=== PATIENT | female | born 1955 | race Caucasian/White ===

== ENCOUNTER → 2017-05-19 | Outpatient (REF) | payer BC, OTHER ==
[~2017-05-19] MED LIST: /WARF25TA OR; /WARF5TA OR; ACET65TA OR; IBUPROPHEN PO; OMEPPOW18 PO; PERC5TAB8 OR; PERC7.5T8 OR; PERCOCET PO; ZOLOFT PO
[2017-05-19 18:13] LABS: ALBUMIN 3.5 GM/DL (3.2-5.2); ALBUMIN/GLOBULIN RATIO 1.25 (1.00-1.93); ALKALINE PHOSPHATASE 90 U/L (45-117); ALT/SGPT 58 U/L (12-78); ANION GAP 8 MEQ/L (8-16); AST/SGOT 78 U/L (7-37); BILIRUBIN,TOTAL 0.7 MG/DL (0.2-1.0); BLOOD UREA NITROGEN 8 MG/DL (7-18); CALCIUM LEVEL 8.6 MG/DL (8.8-10.2); CARBON DIOXIDE LEVEL 26 MEQ/L (21-32); CHLORIDE LEVEL 105 MEQ/L (98-107); CREATININE FOR GFR 0.53 MG/DL (0.55-1.02); GLOMERULAR FILTRATION RATE > 60.0 (>45); GLUCOSE, FASTING 197 MG/DL (80-110); POTASSIUM SERUM 3.9 MEQ/L (3.5-5.1); SODIUM LEVEL 139 MEQ/L (136-145); TOTAL PROTEIN 6.3 GM/DL (6.4-8.2)
[2017-05-19 18:42] LABS: BASO # 0.1 10^3/uL (0.0-0.2); BASO % 0.7 % (0.0-1.0); EOS # 0.2 10^3/uL (0.0-0.50); EOS % 2.2 % (0.0-3.0); IMMATURE GRANULOCYTE % 1.1 % (0-0); LYMPH # 1.2 10^3/uL (1.5-4.5); MEAN CORPUSCULAR HEMOGLOBIN 30.8 pg (27.0-33.0); MEAN CORPUSCULAR HGB CONC 33.2 g/dl (32.0-36.5); MONO # 0.8 10^3/uL (0.0-0.8); MONO % 7.4 % (0.0-5.0); NEUTROPHILS # 7.8 10^3/uL (1.8-7.7); NEUTROPHILS % 76.6 % (36.0-66.0); PLATELET COUNT, AUTOMATED 195 10^3/uL (150-450); RED CELL DISTRIBUTION WIDTH 13.1 % (11.5-14.5); WHITE BLOOD COUNT 10.2 10^3/uL (4.0-10.0)
[2017-05-19 19:17] LABS: ERYTHROCYTE SEDIMENTATION RATE 46 mm/hr (0-30)
== END ==
LOC: M LAB REF 16:26
PROVIDERS: ATTEND Nurse Practitioner
DX: M25.551 Pain in right hip (principal); I10 Essential (primary) hypertension; E11.9 Type 2 diabetes mellitus without complications

== ENCOUNTER → 2017-06-02 | Outpatient (REF) | payer BC, OTHER ==
[2017-06-02 19:03] LABS: BASO # 0.1 10^3/uL (0.0-0.2); BASO % 0.9 % (0.0-1.0); EOS # 0.3 10^3/uL (0.0-0.50); EOS % 3.2 % (0.0-3.0); IMMATURE GRANULOCYTE % 0.5 % (0-0); LYMPH # 1.2 10^3/uL (1.5-4.5); LYMPH % 13.3 % (24.0-44.0); MEAN CORPUSCULAR HEMOGLOBIN 30.5 pg (27.0-33.0); MEAN CORPUSCULAR VOLUME 92.5 fl (80.0-96.0); MONO # 0.7 10^3/uL (0.0-0.8); MONO % 8.3 % (0.0-5.0); NEUTROPHILS # 6.5 10^3/uL (1.8-7.7); NEUTROPHILS % 73.8 % (36.0-66.0); PLATELET COUNT, AUTOMATED 201 10^3/uL (150-450); RED CELL DISTRIBUTION WIDTH 12.7 % (11.5-14.5); WHITE BLOOD COUNT 8.8 10^3/uL (4.0-10.0)
[2017-06-02 19:10] LABS: ALBUMIN 3.6 GM/DL (3.2-5.2); ALBUMIN/GLOBULIN RATIO 1.38 (1.00-1.93); ALKALINE PHOSPHATASE 102 U/L (45-117); ALT/SGPT 44 U/L (12-78); ANION GAP 7 MEQ/L (8-16); AST/SGOT 52 U/L (7-37); BILIRUBIN,TOTAL 0.6 MG/DL (0.2-1.0); BLOOD UREA NITROGEN 7 MG/DL (7-18); CALCIUM LEVEL 8.4 MG/DL (8.8-10.2); CARBON DIOXIDE LEVEL 27 MEQ/L (21-32); CHLORIDE LEVEL 108 MEQ/L (98-107); CREATININE FOR GFR 0.63 MG/DL (0.55-1.02); GLOMERULAR FILTRATION RATE > 60.0 (>45); GLUCOSE, FASTING 148 MG/DL (80-110); POTASSIUM SERUM 3.7 MEQ/L (3.5-5.1); SODIUM LEVEL 142 MEQ/L (136-145); TOTAL PROTEIN 6.2 GM/DL (6.4-8.2)
[2017-06-02 20:49] LABS: ERYTHROCYTE SEDIMENTATION RATE 28 mm/hr (0-30)
== END ==
LOC: M LAB REF 16:36
PROVIDERS: ATTEND Nurse Practitioner
DX: Z79.899 Other long term (current) drug therapy (principal)

== ENCOUNTER → 2017-06-09 | Outpatient (REF) | payer BC ==
[2017-06-09 16:41] LABS: BASO # 0.1 10^3/uL (0.0-0.2); BASO % 1.1 % (0.0-1.0); EOS # 0.2 10^3/uL (0.0-0.50); EOS % 2.2 % (0.0-3.0); LYMPH # 1.1 10^3/uL (1.5-4.5); LYMPH % 11.8 % (24.0-44.0); MEAN CORPUSCULAR HEMOGLOBIN 29.9 pg (27.0-33.0); MEAN CORPUSCULAR HGB CONC 33.2 g/dl (32.0-36.5); MEAN CORPUSCULAR VOLUME 90.2 fl (80.0-96.0); MONO # 0.6 10^3/uL (0.0-0.8); MONO % 6.7 % (0.0-5.0); NEUTROPHILS % 77.2 % (36.0-66.0); PLATELET COUNT, AUTOMATED 203 10^3/uL (150-450); RED CELL DISTRIBUTION WIDTH 12.6 % (11.5-14.5)
[2017-06-09 16:57] LABS: ALBUMIN 3.7 GM/DL (3.2-5.2); ALBUMIN/GLOBULIN RATIO 1.32 (1.00-1.93); ALKALINE PHOSPHATASE 90 U/L (45-117); ALT/SGPT 40 U/L (12-78); ANION GAP 9 MEQ/L (8-16); AST/SGOT 54 U/L (7-37); BILIRUBIN,TOTAL 0.6 MG/DL (0.2-1.0); BLOOD UREA NITROGEN 12 MG/DL (7-18); CARBON DIOXIDE LEVEL 25 MEQ/L (21-32); CHLORIDE LEVEL 106 MEQ/L (98-107); CREATININE FOR GFR 0.63 MG/DL (0.55-1.02); GLOMERULAR FILTRATION RATE > 60.0 (>45); GLUCOSE, FASTING 169 MG/DL (80-110); POTASSIUM SERUM 3.5 MEQ/L (3.5-5.1); SODIUM LEVEL 140 MEQ/L (136-145); TOTAL PROTEIN 6.5 GM/DL (6.4-8.2)
[2017-06-09 17:46] LABS: ERYTHROCYTE SEDIMENTATION RATE 20 mm/hr (0-30)
== END ==
LOC: M LAB REF 16:16
PROVIDERS: ATTEND Physician Assistant
DX: Z79.899 Other long term (current) drug therapy (principal)

== ENCOUNTER → 2017-06-16 | Outpatient (REF) | payer BC ==
[2017-06-17 10:05] LABS: EOS % 1.8 % (0.0-3.0); IMMATURE GRANULOCYTE % 0.7 % (0-0); LYMPH % 12.7 % (24.0-44.0); MEAN CORPUSCULAR HEMOGLOBIN 30.5 pg (27.0-33.0); MEAN CORPUSCULAR HGB CONC 32.5 g/dl (32.0-36.5); MEAN CORPUSCULAR VOLUME 93.9 fl (80.0-96.0); MONO % 6.1 % (0.0-5.0); NEUTROPHILS % 77.7 % (36.0-66.0); PLATELET COUNT, AUTOMATED 207 10^3/uL (150-450); RED CELL DISTRIBUTION WIDTH 12.7 % (11.5-14.5); WHITE BLOOD COUNT 9.2 10^3/uL (4.0-10.0)
[2017-06-17 10:06] LABS: ANION GAP 9 MEQ/L (8-16); BASO # 0.1 10^3/uL (0.0-0.2); BLOOD UREA NITROGEN 12 MG/DL (7-18); CALCIUM LEVEL 8.6 MG/DL (8.8-10.2); CARBON DIOXIDE LEVEL 25 MEQ/L (21-32); CHLORIDE LEVEL 104 MEQ/L (98-107); CREATININE FOR GFR 0.81 MG/DL (0.55-1.02); DIFF SLIDE NUMBER 394; EOS # 0.2 10^3/uL (0.0-0.50); ERYTHROCYTE SEDIMENTATION RATE 8 mm/hr (0-30); GLOMERULAR FILTRATION RATE > 60.0 (>45); GLUCOSE, FASTING 203 MG/DL (80-110); LYMPH # 1.2 10^3/uL (1.5-4.5); MONO # 0.6 10^3/uL (0.0-0.8); NEUTROPHILS # 7.2 10^3/uL (1.8-7.7); SODIUM LEVEL 138 MEQ/L (136-145)
[2017-06-17 10:07] LABS: ALBUMIN 3.7 GM/DL (3.2-5.2); ALBUMIN/GLOBULIN RATIO 1.28 (1.00-1.93); ALKALINE PHOSPHATASE 89 U/L (45-117); ALT/SGPT 47 U/L (12-78); AST/SGOT 54 U/L (7-37); BILIRUBIN,TOTAL 0.5 MG/DL (0.2-1.0); TOTAL PROTEIN 6.6 GM/DL (6.4-8.2)
== END ==
LOC: M LAB REF 09:16
PROVIDERS: ATTEND Nurse Practitioner
DX: Z79.2 Long term (current) use of antibiotics (principal)

== ENCOUNTER → 2018-04-17 | Outpatient (CLI) | payer MEDICARE | LOC: M CLY 10:54 | DX: M17.11 Unilateral primary osteoarthritis, right knee (principal); M25.761 Osteophyte, right knee; M25.561 Pain in right knee | CPT/HCPCS: 73564; 84550 ==

== ENCOUNTER → 2018-04-17 | Outpatient (REF) | payer MEDICARE ==
[2018-04-17 17:43] LABS: BASO # 0.1 10^3/uL (0.0-0.2); EOS # 0.2 10^3/uL (0.0-0.50); EOS % 2.4 % (0.0-3.0); HEMATOCRIT 40.9 % (36.0-47.0); HEMOGLOBIN 13.6 g/dl (12.0-15.5); IMMATURE GRANULOCYTE % 0.6 % (0-3.0); LYMPH # 1.3 10^3/uL (1.5-4.5); LYMPH % 15.7 % (24.0-44.0); MEAN CORPUSCULAR HEMOGLOBIN 30.2 pg (27.0-33.0); MEAN CORPUSCULAR HGB CONC 33.3 g/dl (32.0-36.5); MEAN CORPUSCULAR VOLUME 90.9 fl (80.0-96.0); MONO # 0.5 10^3/uL (0.0-0.8); MONO % 5.7 % (0.0-5.0); NEUTROPHILS % 74.6 % (36.0-66.0); PLATELET COUNT, AUTOMATED 194 10^3/uL (150-450); RED CELL DISTRIBUTION WIDTH 12.8 % (11.5-14.5)
[2018-04-17 18:16] LABS: ANION GAP 12 MEQ/L (8-16); BLOOD UREA NITROGEN 10 MG/DL (7-18); CALCIUM LEVEL 9.1 MG/DL (8.8-10.2); CARBON DIOXIDE LEVEL 22 MEQ/L (21-32); CHLORIDE LEVEL 106 MEQ/L (98-107); CREATININE FOR GFR 0.65 MG/DL (0.55-1.30); GLOMERULAR FILTRATION RATE > 60.0 (>45); GLUCOSE, FASTING 208 MG/DL (70-100); POTASSIUM SERUM 4.2 MEQ/L (3.5-5.1); SODIUM LEVEL 140 MEQ/L (136-145); URIC ACID 4.6 MG/DL (2.6-6.0)
[2018-04-17 19:26] LABS: ERYTHROCYTE SEDIMENTATION RATE 23 mm/hr (0-30)
== END ==
LOC: M SFHCCLAY 10:29
DX: M25.561 Pain in right knee (principal)
CPT/HCPCS: 84550

== ENCOUNTER → 2018-06-03 | Outpatient (REF) | payer MEDICARE ==
[2018-06-03 16:51] LABS: CHOLESTEROL LEVEL 201 MG/DL (<200); CHOLESTEROL RISK RATIO 4.902 (<5); HDL CHOLESTEROL 41 MG/DL (>40); LDL CHOLESTEROL 126 MG/DL (<100); NON-HDL-C 160 MG/DL; TRIGLYCERIDES LEVEL 168 MG/DL (<150)
[2018-06-03 16:59] LABS: ESTIMATED AVERAGE GLUCOSE 166 MG/DL (60-110); HEMOGLOBIN A1c 7.4 %
[2018-06-03 17:19] LABS: APPEARANCE, URINE CLEAR (CLEAR); BACTERIA, URINE AUTO 1+ (NEGATIVE); BILIRUBIN, URINE AUTO NEGATIVE (NEGATIVE); BLOOD, URINE BLOOD NEGATIVE (NEGATIVE); COLOR, URINE YELLOW (YELLOW); GLUCOSE, URINE (UA) AUTO NEGATIVE (NEGATIVE); KETONE, URINE AUTO NEGATIVE (NEGATIVE); LEUKOCYTE ESTERASE, URINE AUTO TRACE (NEGATIVE); MUCUS, URINE SMALL (NEGATIVE); NITRITE, URINE AUTO NEGATIVE (NEGATIVE); PROTEIN, URINE AUTO NEGATIVE (NEGATIVE); RBC, URINE AUTO 0 /HPF (0-3); SPECIFIC GRAVITY URINE AUTO 1.014 (1.002-1.035); SQUAMOUS EPITHELIAL CELL UR AU 0 /HPF (0-6); UROBILINOGEN, URINE AUTO 0.2 mg/dL (0.0-2.0); WBC, URINE AUTO 2 /HPF (0-3)
== END ==
LOC: M SFHCCLAY 10:43
DX: E11.9 Type 2 diabetes mellitus without complications (principal); E78.49 Other hyperlipidemia; R82.90 Unspecified abnormal findings in urine; E55.9 Vitamin D deficiency, unspecified
CPT/HCPCS: 83036

== ENCOUNTER → 2018-10-19 | Outpatient (REF) | payer MEDICARE ==
[2018-10-19 17:18] LABS: ALBUMIN 4.3 GM/DL (3.2-5.2); ALT/SGPT 44 U/L (12-78); BILIRUBIN,TOTAL 0.5 MG/DL (0.2-1.0); BLOOD UREA NITROGEN 17 MG/DL (7-18); CALCIUM LEVEL 9.1 MG/DL (8.8-10.2); CARBON DIOXIDE LEVEL 26 MEQ/L (21-32); CHLORIDE LEVEL 105 MEQ/L (98-107); CHOLESTEROL LEVEL 242 MG/DL (<200); CHOLESTEROL RISK RATIO 5.761 (<5); GLOMERULAR FILTRATION RATE > 60.0 (>45); GLUCOSE, FASTING 155 MG/DL (70-100); HDL CHOLESTEROL 42 MG/DL (>40); LDL CHOLESTEROL 174 MG/DL (<100); NON-HDL-C 200 MG/DL; POTASSIUM SERUM 4.2 MEQ/L (3.5-5.1); SODIUM LEVEL 139 MEQ/L (136-145); TOTAL PROTEIN 7.4 GM/DL (6.4-8.2); TRIGLYCERIDES LEVEL 129 MG/DL (<150)
[2018-10-19 17:25] LABS: TOTAL 25(OH) VITAMIN D 21.7 NG/ML (30.0-100.0)
[2018-10-19 17:27] LABS: HEMATOCRIT 43.2 % (36.0-47.0); HEMOGLOBIN 13.9 g/dl (12.0-15.5); MEAN CORPUSCULAR HEMOGLOBIN 29.3 pg (27.0-33.0); MEAN CORPUSCULAR HGB CONC 32.2 g/dl (32.0-36.5); MEAN CORPUSCULAR VOLUME 91.1 fl (80.0-96.0); PLATELET COUNT, AUTOMATED 220 10^3/uL (150-450); RED BLOOD COUNT 4.74 10^6/uL (4.00-5.40)
[2018-10-19 17:37] LABS: MALB URINE SIEMENS 24.1 MG/L; MAU/CREAT RATIO 27.7 MCG/MG (0.0-30.0)
[2018-10-19 17:45] LABS: HEMOGLOBIN A1c 7.9 %
== END ==
LOC: M SFHCCLAY 10:02
PROVIDERS: ATTEND Nurse Practitioner Family
DX: K21.9 Gastro-esophageal reflux disease without esophagitis (principal); I10 Essential (primary) hypertension; E11.9 Type 2 diabetes mellitus without complications; E78.49 Other hyperlipidemia; E55.9 Vitamin D deficiency, unspecified

== ENCOUNTER → 2019-01-26 | Outpatient (REF) | payer MEDICARE ==
[~2019-01-26] MED LIST changes: -/WARF25TA OR; -/WARF5TA OR; +COUM1TAB17 OR; +COUM1TAB18 OR
[2019-01-26 12:25] LABS: HEMOGLOBIN A1c 7.1 %
[2019-01-26 12:28] LABS: CHOLESTEROL RISK RATIO 7.105 (<5); TOTAL 25(OH) VITAMIN D 26.1 NG/ML (30.0-100.0)
== END ==
LOC: M SFHCCLAY 07:11
PROVIDERS: ATTEND Nurse Practitioner Family
DX: E11.9 Type 2 diabetes mellitus without complications (principal); E78.49 Other hyperlipidemia; E55.9 Vitamin D deficiency, unspecified

== ENCOUNTER → 2019-06-09 | Outpatient (REF) | payer MEDICARE ==
[2019-06-09 16:31] LABS: ALBUMIN 4.2 GM/DL (3.2-5.2); BILIRUBIN,DIRECT 0.1 MG/DL (0.0-0.2); BILIRUBIN,TOTAL 0.4 MG/DL (0.2-1.0); CHOLESTEROL RISK RATIO 6.48 (<5); TOTAL PROTEIN 7.4 GM/DL (6.4-8.2)
[2019-06-09 16:57] LABS: CREATININE, URINE 74.2 MG/DL; MALB URINE SIEMENS 6.9 MG/L; MAU/CREAT RATIO 9.2 MCG/MG (0.0-30.0)
== END ==
LOC: M SFHCCLAY 10:31
PROVIDERS: ATTEND Nurse Practitioner Family
DX: E11.9 Type 2 diabetes mellitus without complications (principal); E78.49 Other hyperlipidemia; E55.9 Vitamin D deficiency, unspecified; Z79.01 Long term (current) use of anticoagulants; Z79.899 Other long term (current) drug therapy

== ENCOUNTER → 2019-06-22 | Outpatient (CLI) | payer MEDICARE ==
--- NOTE | 2019-06-22 10:43 | REP ---
Clinical: Preoperative assessment . Comparison: 01/03/2012 . Technique: PA and lateral. Findings: The mediastinum and cardiac silhouette are normal. The lung albrecht are clear and without acute consolidation, effusion, or pneumothorax. The skeletal structures are intact and normal. Left shoulder replacement. Impression: 1. No acute cardiopulmonary process. Electronically Signed by Luis Rea MD 06/22/2019 10:34 A
[2019-06-22 11:26] LABS: HEMATOCRIT 46.6 % (36.0-47.0); HEMOGLOBIN 14.8 g/dl (12.0-15.5); MEAN CORPUSCULAR HEMOGLOBIN 28.6 pg (27.0-33.0); MEAN CORPUSCULAR HGB CONC 31.8 g/dl (32.0-36.5); MEAN CORPUSCULAR VOLUME 90.1 fl (80.0-96.0); PLATELET COUNT, AUTOMATED 215 10^3/uL (150-450); RED BLOOD COUNT 5.17 10^6/uL (4.00-5.40); WHITE BLOOD COUNT 8.4 10^3/uL (4.0-10.0)
[2019-06-22 11:44] LABS: INR 1.05; PROTHROMBIN TIME 13.4 SECONDS (11.8-14.0)
[2019-06-22 11:50] LABS: ERYTHROCYTE SEDIMENTATION RATE 9 mm/hr (0-30)
[2019-06-22 12:05] LABS: ALBUMIN 4.3 GM/DL (3.2-5.2); ALT/SGPT 26 U/L (12-78); BILIRUBIN,TOTAL 0.6 MG/DL (0.2-1.0); BLOOD UREA NITROGEN 16 MG/DL (7-18); CALCIUM LEVEL 9.6 MG/DL (8.8-10.2); CARBON DIOXIDE LEVEL 25 MEQ/L (21-32); CHLORIDE LEVEL 105 MEQ/L (98-107); CREATININE FOR GFR 0.68 MG/DL (0.55-1.30); GLOMERULAR FILTRATION RATE > 60.0 (>45); GLUCOSE, FASTING 120 MG/DL (70-100); POTASSIUM SERUM 3.8 MEQ/L (3.5-5.1); SODIUM LEVEL 139 MEQ/L (136-145); TOTAL PROTEIN 7.8 GM/DL (6.4-8.2)
--- NOTE | 2019-06-23 07:57 | ECGEPIP ---
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
== END ==
LOC: M LAB 09:50
PROVIDERS: ATTEND Orthopaedic Surgery Hand Surgery
DX: Z01.810 Encounter for preprocedural cardiovascular examination (principal); M16.11 Unilateral primary osteoarthritis, right hip; Z79.01 Long term (current) use of anticoagulants

== ENCOUNTER 2019-07-09 08:41 | Inpatient (IN) | payer MEDICARE ==
--- NOTE | 2019-07-06 18:58 | HPE ---
DATE OF ADMISSION: 07/09/2019 CHIEF COMPLAINT: Right hip pain. HISTORY OF PRESENT ILLNESS: Jessi is a pleasant 53-year-old female with progressively worsening right hip pain and stiffness. She has failed to improve with conservative treatment. She has elected for surgery for her continued symptoms. She has pain with weightbearing activities and her activities of daily living. X-rays of her hip are notable for advanced osteoarthritis of the right hip joint. She has consented for a right total hip arthroplasty by Dr. Norman Roe. Medical optimization was performed by Dr. Raya's office. ALLERGIES: AMOXICILLIN and AUGMENTIN. CURRENT MEDICATIONS: Omeprazole 40 mg at night, Vicodin 7.5/325 as needed, Zoloft to 200 mg and Crestor 400 mg. PAST MEDICAL HISTORY: Includes prediabetes and depression. PAST SURGICAL HISTORY: Includes hysterectomy, appendectomy, left total hip revision, left shoulder and left knee arthroscopies. 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 FAMILY HISTORY: Noncontributory. REVIEW OF SYSTEMS: This patient denies chest pain, heart palpitations, cough, wheezing, difficulty breathing and shortness of breath. She denies abdominal pain, nausea, vomiting, diarrhea or constipation. She denies recent upper respiratory infection or urinary tract infection symptoms. She does complain of persistent pain in the right hip. PHYSICAL EXAMINATION: General: She is well-nourished, well-developed in no acute distress, alert female. She ambulates with a mild limp favoring the right lower extremity. She is not using assistive devices. Vital signs: She is 5', 7", weighs 183.8 pounds, temperature 97.3, blood pressure 124/80, pulse of 66, respirations of 18. Neck was supple without adenopathy or jugular venous distension. Lungs were clear to auscultation without rales or wheeze. Heart: Regular rate and rhythm. Abdomen: Bowel sounds were present. Extremities: Examination of the hip revealed intact skin. She had decreased internal, external rotation on exam due to pain and stiffness. The limb is neurovascularly intact. LABORATORY DATA: Chest x-ray showed no acute cardiopulmonary disease, processes. EKG showed sinus rhythm at 87 beats per minute. Complete blood count (CBC) showed MCHC of 31.8, otherwise within normal limits. Sedimentation rate was 9, glucose 120, BUN 16, creatinine 0.68, sodium 139, potassium 3.8. Prothrombin time 13.4, INR 1.05. IMPRESSION: Symptomatic osteoarthritis of the right hip. PLAN: Consented for a right total hip arthroplasty by Dr. Norman Roe. edited: 07/12/2019 1134 tkf MTDD
[~2019-07-09] VITALS: Ht 167.6 cm; Wt 81.2 kg
[2019-07-09] VITALS (8 sets, daily range): BP systolic 100–116; BP diastolic 54–72
[~2019-07-09 08:41] MED LIST changes: +CRES40TA PO; +LR 1,000 ML IV ONE; +OMEP-172 PO; +VICO7.5T12 PO; +ZOLO100T PO
[2019-07-09] MEDS ORDERED: BUPIVACAINE LIPOSOME/PF 1.3% 20ML VIAL (13.3MG/ML)(EXPAREL)(C9290 PER1MG) As Ordered ONE (09:11)
[2019-07-09] MEDS ORDERED: VIAL MATE ADAPTER XX ONE ×3 (09:20→09:41)
[2019-07-09] MEDS ORDERED: PROPOFOL 500 MG/50 ML VIAL As Ordered ONE ×2 (09:50→11:04)
[2019-07-09] MEDS ORDERED: fentaNYL 100 MCG/2 ML INJECTION (J3010) As Ordered ONE (09:50)
[2019-07-09] MEDS ORDERED: ONDANSETRON 4MG/2ML VIAL (J2405) As Ordered ONE (09:50)
[2019-07-09] MEDS ORDERED: LIDOCAINE 2% INJ 100 MG/5 ML SDV (FOR ANES.) As Ordered ONE (09:50)
[2019-07-09] MEDS ORDERED: MIDAZOLAM INJ 2 MG/2 ML VIAL (J2250) As Ordered ONE (09:50)
[2019-07-09] MEDS ORDERED: dexameTHASONE 4 MG/ML 1ML VIAL (J1100) As Ordered ONE (09:50)
[2019-07-09] MEDS ORDERED: TRANEXAMIC ACID 100 MG/ML 10ML VIAL As Ordered ONE (09:55)
[2019-07-09] MEDS ORDERED: VANCOMYCIN HCL 1,000 MG, VIAL MATE ADAPTER 1 EACH in D5W 250 ML IV ONE (10:00)
[2019-07-09] MEDS ORDERED: PHENYLephrine HCL 500 MCG/5 ML (100MCG/ML) SYRINGE (J2370) As Ordered ONE (10:58)
[2019-07-09] MEDS ORDERED: ACETAMINOPHEN 1000MG 100ML IV BTL (OFIRMEV) (J0131 PER 10MG) As Ordered ONE (12:04)
[2019-07-09] MEDS ORDERED: ONDANSETRON 4MG/2ML VIAL (J2405) IV PRN (13:00)
[2019-07-09] MEDS ORDERED: LR 1,000 ML IV SCH (13:00)
[2019-07-09] MEDS ORDERED: fentaNYL 100 MCG/2 ML INJECTION (J3010) IV PRN (13:00)
[2019-07-09] MEDS ORDERED: METOCLOPRAMIDE INJ 10MG/2ML VIAL (J2765) IV PRN (13:00)
[2019-07-09] MEDS ORDERED: PERCOCET 5MG/325MG TAB PO PRN (13:00)
--- NOTE | 2019-07-09 13:09 | REP ---
Right hip: Two views. History: Postop. Findings: The patient is status post right hip arthroplasty. Arthroplasty components appear well aligned. Lateral skin mamie and soft tissue emphysema is visible. Impression: Status post right hip arthroplasty. Electronically Signed by Howie Donovan MD 07/09/2019 01:00 P
--- NOTE | 2019-07-09 13:10 | REP ---
Pelvis: Single view portably obtained. History: Postop placement. Findings: AP view of the pelvis demonstrates a bilateral hip arthroplasties in place. Degenerative disc and facet changes are noted in the lumbar spine. The bony pelvic ring is intact. Impression: Status post bilateral hip arthroplasty. Electronically Signed by Howie Donovan MD 07/09/2019 01:01 P
[2019-07-09] MEDS ORDERED: FLEET ENEMA PR PRN (13:15)
[2019-07-09] MEDS ORDERED: NS 1,000 ML IV SCH (13:15)
[2019-07-09] MEDS ORDERED: ONDANSETRON 4MG/2ML VIAL (J2405) IM PRN (13:15)
[2019-07-09] MEDS ORDERED: MORPHINE 2 MG/ML 1ML VIAL (J2270) IV PRN (13:15)
[2019-07-09] MEDS ORDERED: oxyCODONE 5MG TAB As Ordered ONE (13:22)
[2019-07-09] MEDS: oxyCODONE 5MG TAB PO PRN ×3 (13:25→20:29)
[2019-07-09] MEDS: CLINDAMYCIN 900 MG in IV 1 EA IV SCH (17:35)
--- NOTE | 2019-07-09 20:10 | CR.PDOC ---
General Date of Consultation: Jul 09, 2019 Consultation REASON FOR CONSULTATION/CHIEF COMPLAINT: Status post right total hip arthroplasty. HISTORY OF PRESENT ILLNESS: 64-year-old female with past medical history of diabetes, GERD, hyperlipidemia, was admitted status post right total hip arthroplasty. Procedure was done under spinal anesthesia, without complications, patient seen in her room, reports right hip pain and no other complaints. She is already gotten out of bed with assistance, passing flatus, has urinated after surgery. She denies any shortness of breath, chest pain, nausea, vomiting or diarrhea. 10 point review of system is negative except for above ALLERGIES: Please see below. HOME MEDICATIONS: Please see below. PAST MEDICAL HISTORY: 1. GERD. 2. Hyperlipidemia. 3. Diabetes mellitus. 4. Anxiety/depression PAST SURGICAL HISTORY: 1. Left total hip arthroplasty 2. Right total hip arthroplasty 3. Hysterectomy. 4. Multiple left shoulder surgeries FAMILY HISTORY: Mother with brain cancer SOCIAL HISTORY: Previous intermittent social smoker, quit 6 years ago. Denies alcohol use. Denies drug use PHYSICAL EXAMINATION: VITAL SIGNS: Please see below. GENERAL: No distress HEENT: Normocephalic, atraumatic, moist mucous membranes NECK: Supple CARDIOVASCULAR EXAMINATION: S1, S2, no murmurs RESPIRATORY EXAMINATION: Clear to auscultation, no wheezing ABDOMINAL EXAMINATION: Soft, nontender, nondistended, positive bowel sounds EXTREMITIES: Right lower extremity range of motion limited due to pain SKIN: No rash NEUROLOGICAL EXAMINATION: Alert and oriented 3, no focal deficits PSYCHIATRIC EXAMINATION: Calm and cooperative LABORATORY DATA: Please see below. ASSESSMENT/PLAN: 64-year-old female with past medical history of GERD, diabetes and hyperlipidemia is admitted status post right total hip arthroplasty. 1. Right total hip arthroplasty. Postop management as per primary team, on Xarelto for VTE prophylaxis. 2. Hyperlipidemia. Continue Crestor 3. GERD. Continue PPI 4. Diabetes mellitus. Not on medication, controlled with diet, will monitor. 5. Anxiety/depression. Continue sertraline DVT prophylaxis: Xarelto GI prophylaxis: PPI Vital Signs/I&O Vital Signs Date Time Temp Pulse Resp B/P (MAP) Pulse Ox O2 Delivery O2 Flow Rate FiO2 07/09/19 18:40 97.6 87 14 113/63 (80) 98 Nasal Cannula 2.0 Allergies Coded Allergies: latex (Verified Allergy, Intermediate, rash, 07/09/19) Penicillins (Verified Adverse Reaction, Mild, GI UPSET, 07/08/19) clavulanic acid (Verified Adverse Reaction, Mild, GI UPSET, 07/08/19) Home Medications Scheduled Omeprazole (Omeprazole) 20 Mg Capsule.dr, 20 MG PO BID, (Reported) Rosuvastatin Calcium (Crestor) 40 Mg Tablet, 40 MG PO DAILY for 30 Days, #30 (Reported) Sertraline Hcl (Zoloft) 100 Mg Tablet, 200 MG PO DAILY for 30 Days, #30 (Reported) Scheduled PRN Hydrocodone/Acetaminophen (Vicodin Es 7.5-300 mg Tablet) 1 Each Tablet, 1 TAB PO QIDP PRN for PAIN for 30 Days, #120 (Reported) MARQUEZ BAER MD Jul 09, 2019 20:10
[2019-07-09] MEDS: ROSUVASTATIN 10 MG TAB (CRESTOR) PO SCH (20:26)
[2019-07-09] MEDS: OMEPRAZOLE 20 MG CAP PO SCH (20:27)
[2019-07-09] MEDS: SERTRALINE 100 MG TAB PO SCH (20:27)
[2019-07-10] MEDS: oxyCODONE 5MG TAB PO PRN ×6 (00:01→20:15)
[2019-07-10 02:00] VITALS: BP 112/64
[2019-07-10] MEDS: CLINDAMYCIN 900 MG in IV 1 EA IV SCH ×2 (02:23→11:34)
[2019-07-10 05:57] LABS: HEMATOCRIT 29.5 % (36.0-47.0); HEMOGLOBIN 9.2 g/dl (12.0-15.5); MEAN CORPUSCULAR HEMOGLOBIN 28.3 pg (27.0-33.0); MEAN CORPUSCULAR HGB CONC 31.2 g/dl (32.0-36.5); MEAN CORPUSCULAR VOLUME 90.8 fl (80.0-96.0); PLATELET COUNT, AUTOMATED 134 10^3/uL (150-450); RED BLOOD COUNT 3.25 10^6/uL (4.00-5.40); WHITE BLOOD COUNT 9.6 10^3/uL (4.0-10.0)
[2019-07-10 06:00] VITALS: BP 115/72
[2019-07-10 06:27] LABS: BLOOD UREA NITROGEN 11 MG/DL (7-18); CALCIUM LEVEL 8.1 MG/DL (8.8-10.2); CARBON DIOXIDE LEVEL 24 MEQ/L (21-32); CHLORIDE LEVEL 109 MEQ/L (98-107); CREATININE FOR GFR 0.64 MG/DL (0.55-1.30); GLOMERULAR FILTRATION RATE > 60.0 (>45); GLUCOSE, FASTING 149 MG/DL (70-100); POTASSIUM SERUM 3.6 MEQ/L (3.5-5.1); SODIUM LEVEL 140 MEQ/L (136-145)
[2019-07-10] MEDS ORDERED: OXYC-517 PO ×2 (07:29→07:37)
[2019-07-10] MEDS ORDERED: XARE10TA PO (07:29)
[2019-07-10] MEDS: MIRALAX *UNIT DOSE* 17GM PACKET PO SCH (08:31)
[2019-07-10] MEDS: OMEPRAZOLE 20 MG CAP PO SCH ×2 (08:31→20:12)
[2019-07-10] MEDS: MOM 30ML SUSPENSION UDC PO SCH (08:31)
[2019-07-10] MEDS: SENOKOT S TAB PO SCH ×2 (08:32→20:13)
[2019-07-10] MEDS: ACETAMINOPHEN TAB 650MG DOSE (2X325MG) PO PRN ×3 (11:34→20:14)
[2019-07-10] MEDS: MORPHINE 2 MG/ML 1ML VIAL (J2270) IV PRN ×2 (14:01→22:15)
[2019-07-10 14:59] VITALS: BP_SYST 100; BP_SYST 94; BP_DIAS 52; BP_DIAS 54
[2019-07-10] MEDS ORDERED: RIVAROXABAN 10 MG TAB (XARELTO) PO SCH (18:00)
[2019-07-10] MEDS: SERTRALINE 100 MG TAB PO SCH (20:12)
[2019-07-10] MEDS: ROSUVASTATIN 10 MG TAB (CRESTOR) PO SCH (20:13)
[2019-07-10 21:45] VITALS: BP 102/60
[2019-07-11 06:06] VITALS: BP 104/59
[2019-07-11] MEDS ORDERED: XARE10TA PO (06:23)
[2019-07-11] MEDS ORDERED: MORP15TASA PO (06:45)
[2019-07-11] MEDS: MOM 30ML SUSPENSION UDC PO SCH (08:08)
[2019-07-11] MEDS: OMEPRAZOLE 20 MG CAP PO SCH (08:08)
[2019-07-11] MEDS: SENOKOT S TAB PO SCH (08:09)
[2019-07-11] MEDS: MIRALAX *UNIT DOSE* 17GM PACKET PO SCH (08:10)
[2019-07-11] MEDS ORDERED: MORPHINE 15 MG SA TAB PO SCH (09:00)
--- NOTE | 2019-07-11 12:42 | IPN ---
DATE: 07/11/2019 Jessi is a patient of Dr. Raya. She is postoperative right total hip. She has history of hypertension and diet controlled type 2 diabetes. She has no chest pain, shortness of breath, polyuria or polydipsia. PHYSICAL EXAMINATION: Vital signs stable. Blood pressure 104/59. Lungs clear. Heart regular rhythm. Abdomen soft, nontender. Neurologic exam nonfocal. She has slight cough. IMPRESSION: 1. Suspected atelectasis. She has an incentive spirometer and I have discussed the importance of using this. 2. Hypertension. Blood pressure is well controlled. 3. Hyperlipidemia. Continue rosuvastatin 40 mg daily. 4. History of depression. Continue with Zoloft 200 mg at bedtime. The patient is medically stable. Call if any medical issues develop that require us to see her during the rest of her hospitalization.
--- NOTE | 2019-07-12 08:54 | RO ---
DATE OF SERVICE: 07/09/2019 PREOPERATIVE DIAGNOSIS: Right hip osteoarthritis. POSTOPERATIVE DIAGNOSIS: Right hip osteoarthritis. PROCEDURE: Right total hip arthroplasty. SURGEON: Norman Roe MD PHONE TECHNICIAN: CHRISTIAN Garcia, who was essential for ford retraction during essential portions of the procedure. ANESTHESIA: Spinal. INDICATIONS: This is a 64-year-old female that failed nonoperative treatment for a right total hip arthroplasty. We discussed the risks and benefits including, but not limited to, infection, damage to surrounding structures, incomplete relief, and patient wished to proceed. PREOPERATIVE ANTIBIOTICS: 1 gram of Ancef considering the patient had previous hip infections on the contralateral hip and previous proximal humerus infection. BLOOD LOSS: 200 mL. COMPLICATIONS: None. OPERATIVE DESCRIPTION: Patient was brought back to the operating room (OR) in supine position, underwent spinal anesthesia, at which point the patient was prepped and draped in a lateral position with the right side up in the usual fashion. Time-out was done, confirming site, side, and surgery. We then made a longitudinal incision over the greater trochanter and the femur, dissecting sharply down using Bovie to coagulate superficial bleeding along the way. On encountering the iliotibial (IT) band, this was sharply incised. We inserted the Charnley and bump under the knee, at which point we cleared off the synovium and exposed the gluteus medius. This was released in such a way to do a soft tissue repair at the end, including some of the vastus up, and split the gluteus truman fibers in line with the greater trochanter. This was tagged with a #0 Vicryl. We then exposed the femoral neck and released the capsule as well. We attempted dislocation but, due to the severe osteoarthritis (OA) and osteophyte formation, we were unable to do so. We did an in situ femoral neck cut, at which point we used a combination osteotome and corkscrew to get out the femoral head. We then removed some loose bodies that we found embedded in the capsule, at which point we placed the posterior, anterior, and superior retractors in place. We removed the remnants of the labrum. We then started reaming with a 43 to medialize the acetabulum, at which point we started from a 48 and sequentially reamed up until a 55 to encounter subchondral bone. We curetted out any cysts that appeared to be present. We then impacted a 56 cup. Due to the good fixation, we did not place any screws. We then placed in a neutral liner. We turned our attention to the femoral component at this point. We used the canal finders and the lateralizer to ensure adequate lateralization. We then sequentially reamed the diaphysis up to a size 7. We then sequentially broached up to a size 6. Due to the lack of progression, we elected to proceed with that. We trialed off the size [address] up to a high offset 135 angle, 8.5 mm neck in order to get adequate stabilization and good range of motion. She is still 1 cm short. She did start 2 cm short; but due to the fit of the stem and the neck, I did not feel comfortable lengthening anymore. We then removed the trial components, irrigated thoroughly, and placed in the 6 stem along with the 36 head with 8.5 offset by our 135 angle. We ranged once more, and we were very happy with the stability of this. Then we irrigated thoroughly, injected Exparel, along with then closing the gluteus medius with a #2 FiberWire repair, the IT band with STRATAFIX, and superficial tissues with #2-0 Vicryl and mamie for skin. We placed a hip dressing, and patient was awakened and taken to the postanesthesia care unit (PACU) in stable condition. POSTOPERATIVE PLAN: Patient will be weightbearing as tolerated, use the abduction pillow while in bed, work on pain control, Surgical Care Improvement Project (SCIP) antibiotic prophylaxis of clindamycin given her allergy to amoxicillin, and we will see her at 2 weeks.
== END 2019-07-11 13:30 | disposition home or self-care (01) | DRG 470 ==
LOC: M OR 08:41 → M MS5PR 14:00
PROVIDERS: ADMIT Orthopaedic Surgery Hand Surgery; ATTEND Orthopaedic Surgery Hand Surgery
PROC: 0SR902A Replacement of Right Hip Joint with Metal on Polyethylene Synthetic Substitute, Uncemented, Open Approach (ICD-10-PCS; principal; 2019-07-09 10:00)
DX: M16.11 Unilateral primary osteoarthritis, right hip (principal); J98.11 Atelectasis; Z88.0 Allergy status to penicillin; Z79.899 Other long term (current) drug therapy; F32.9 Major depressive disorder, single episode, unspecified; K21.9 Gastro-esophageal reflux disease without esophagitis; E11.9 Type 2 diabetes mellitus without complications; E78.5 Hyperlipidemia, unspecified; F41.9 Anxiety disorder, unspecified; Z96.642 Presence of left artificial hip joint

== ENCOUNTER → 2019-07-30 | Outpatient (REF) | payer MEDICARE ==
[~2019-07-30] MED LIST changes: -LR 1,000 ML IV ONE; +MORP15TASA PO; -OMEP-172 PO; +OMEP1CAP73 PO; +OXYC-517 PO; +XARE10TA PO
[2019-07-30 15:55] LABS: BASO # 0.1 10^3/uL (0.0-0.2); BASO % 0.9 % (0.0-1.0); EOS # 0.1 10^3/uL (0.0-0.5); EOS % 1.2 % (0.0-3.0); HEMATOCRIT 39.9 % (36.0-47.0); LYMPH % 11.9 % (24.0-44.0); MEAN CORPUSCULAR HEMOGLOBIN 27.5 pg (27.0-33.0); MEAN CORPUSCULAR HGB CONC 30.1 g/dl (32.0-36.5); MEAN CORPUSCULAR VOLUME 91.3 fl (80.0-96.0); MONO # 0.5 10^3/uL (0.0-0.8); MONO % 5.9 % (0.0-5.0); NEUTROPHILS # 6.9 10^3/uL (1.5-8.5); NEUTROPHILS % 79.8 % (36.0-66.0); PLATELET COUNT, AUTOMATED 308 10^3/uL (150-450); RED BLOOD COUNT 4.37 10^6/uL (4.00-5.40); WHITE BLOOD COUNT 8.7 10^3/uL (4.0-10.0)
[2019-07-30 16:24] LABS: ERYTHROCYTE SEDIMENTATION RATE 44 mm/hr (0-30)
== END ==
LOC: M LABDRAW1 11:01
PROVIDERS: ATTEND Physician Assistant
DX: M16.11 Unilateral primary osteoarthritis, right hip (principal); Z79.899 Other long term (current) drug therapy

== ENCOUNTER → 2019-09-29 | Outpatient (REF) | payer MEDICARE ==
[2019-09-29 16:38] LABS: CHOLESTEROL RISK RATIO 5.301 (<5)
[2019-09-29 17:20] LABS: TOTAL 25(OH) VITAMIN D 22.4 NG/ML (30.0-100.0)
== END ==
LOC: M SFHCCLAY 10:15
PROVIDERS: ATTEND Nurse Practitioner Family
DX: E11.9 Type 2 diabetes mellitus without complications (principal); E78.5 Hyperlipidemia, unspecified; E55.9 Vitamin D deficiency, unspecified; Z79.899 Other long term (current) drug therapy

== ENCOUNTER → 2019-10-04 | Outpatient (REF) | payer MEDICARE ==
[2019-10-06 00:06] LABS: ANA (HEP2) Positive (.); Lyme Disease IgG/IgM Antibodie <0.91 ISR (0.00-0.90); Lyme Disease IgM Ab Quantitati <0.80 index (0.00-0.79)
== END ==
LOC: M SFHCCLAY 08:22
PROVIDERS: ATTEND Nurse Practitioner Family
DX: M25.50 Pain in unspecified joint (principal)

== ENCOUNTER → 2019-11-22 | Outpatient (REF) | payer MEDICARE | LOC: M SFHCRHEU 09:50 | PROVIDERS: ATTEND Internal Medicine | DX: M19.012 Primary osteoarthritis, left shoulder (principal) | CPT/HCPCS: 36415; 85652; 86140; 86200; G0463 ==

== ENCOUNTER → 2019-12-03 | Outpatient (REF) | payer MEDICARE ==
[~2019-12-03] MED LIST changes: +AMIT10TA PO; +HYDR-3713 PO; +PERC5TAB12 PO
[2019-12-03 16:47] LABS: BASO # 0.1 10^3/uL (0.0-0.2); BASO % 0.9 % (0.0-1.0); EOS # 0.1 10^3/uL (0.0-0.5); EOS % 1.2 % (0.0-3.0); HEMATOCRIT 39.8 % (36.0-47.0); HEMOGLOBIN 12.1 g/dl (12.0-15.5); LYMPH # 1.2 10^3/uL (1.5-5.0); LYMPH % 15.1 % (24.0-44.0); MEAN CORPUSCULAR HEMOGLOBIN 25.5 pg (27.0-33.0); MEAN CORPUSCULAR HGB CONC 30.4 g/dl (32.0-36.5); MONO # 0.6 10^3/uL (0.0-0.8); MONO % 7.3 % (0.0-5.0); NEUTROPHILS # 6.1 10^3/uL (1.5-8.5); PLATELET COUNT, AUTOMATED 209 10^3/uL (150-450); RED BLOOD COUNT 4.74 10^6/uL (4.00-5.40); WHITE BLOOD COUNT 8.2 10^3/uL (4.0-10.0)
[2019-12-03 18:06] LABS: ERYTHROCYTE SEDIMENTATION RATE 13 mm/hr (0-30)
== END ==
LOC: M LABDRAWC 15:49
PROVIDERS: ATTEND Orthopaedic Surgery Hand Surgery
DX: S72.114D Nondisplaced fracture of greater trochanter of right femur, subsequent encounter for closed fracture with routine healing (principal); W18.30XD Fall on same level, unspecified, subsequent encounter; Y92.9 Unspecified place or not applicable

== ENCOUNTER → 2019-12-23 | Outpatient (CLI) | payer MEDICARE ==
[~2019-12-23] MED LIST changes: -AMIT10TA PO; -HYDR-3713 PO; -PERC5TAB12 PO
--- NOTE | 2019-12-23 14:42 | REP ---
REASON FOR EXAM: Status post right hip replacement. Assess for loosening. There are no prior triple phase bone scan examinations for comparison. After the intravenous administration of 21.9 millicuries of technetium 99m MDP, a triple phase bone scan was obtained with attention to the right hip. The flow study shows a normal photopenic pattern right hip due to the hip prosthesis. There is no abnormal increased radionuclide accumulation. Blood pool images show bilateral photopenic defects from bilateral hip prostheses, however, the soft tissue activity seen in the soft tissue lateral to the trochanteric portion of the prosthesis is increased compared to the left. Delay imaging shows further increased periprosthetic activity on the right compared to the left. IMPRESSION: Although the well-known pattern of "hot, hotter, hottest" referring to activity levels seen in the affected area on the flow, blood pool, and delay scintiscans respectively is not present today, the uptake pattern of slightly increased blood pool activity with significantly increased activity on delayed imaging right side compared to the left can be an indication of early loosening. Electronically Signed by John Rodriguez DO 12/23/2019 02:47 P
== END ==
LOC: M RAD 10:34
PROVIDERS: ATTEND Orthopaedic Surgery
DX: Z96.641 Presence of right artificial hip joint (principal)
CPT/HCPCS: 78315; A9503

== ENCOUNTER → 2020-01-10 | Outpatient (REF) | payer MEDICARE ==
[2020-01-10 16:51] LABS: HEMOGLOBIN A1c 7.4 %
[2020-01-10 17:19] LABS: CREATININE, URINE 85.8 MG/DL; MALB URINE SIEMENS 9.3 MG/L; MAU/CREAT RATIO 10.8 MCG/MG (0.0-30.0)
[2020-01-10 21:08] LABS: CHOLESTEROL RISK RATIO 3.836 (<5)
[2020-01-11 13:50] LABS: TOTAL 25(OH) VITAMIN D 31.2 NG/ML (30.0-100.0)
== END ==
LOC: M SFHCCLAY 09:46
PROVIDERS: ATTEND Nurse Practitioner Family
DX: E11.9 Type 2 diabetes mellitus without complications (principal); E78.5 Hyperlipidemia, unspecified; E55.9 Vitamin D deficiency, unspecified; Z79.899 Other long term (current) drug therapy

== ENCOUNTER → 2020-04-20 | Outpatient (CLI) | payer MEDICARE ==
[~2020-04-20] MED LIST changes: +AMIT10TA PO; +HYDR-3713 PO; +PERC5TAB12 PO
== END ==
LOC: M LABSMTC 11:31
PROVIDERS: ATTEND Anesthesiology
DX: Z01.812 Encounter for preprocedural laboratory examination (principal); Z20.828 Contact with and (suspected) exposure to other viral communicable diseases
CPT/HCPCS: C9803; G0463; U0003

== ENCOUNTER 2020-04-25 11:40 | Inpatient (IN) | payer MEDICARE ==
[~2020-04-25] VITALS: Ht 167.6 cm; Wt 85.0 kg
[~2020-04-25 11:40] MED LIST changes: +CLINDAMYCIN 900 MG in IV 1 EA IV ONE; -HYDR-3713 PO; +LR 1,000 ML IV ONE; -PERC5TAB12 PO
[2020-04-25 12:28] LABS: HEMATOCRIT 41.6 % (36.0-47.0); HEMOGLOBIN 13.3 g/dl (12.0-15.5); MEAN CORPUSCULAR HEMOGLOBIN 27.3 pg (27.0-33.0); MEAN CORPUSCULAR VOLUME 85.2 fl (80.0-96.0); PLATELET COUNT, AUTOMATED 187 10^3/uL (150-450); RED BLOOD COUNT 4.88 10^6/uL (4.00-5.40); WHITE BLOOD COUNT 8.2 10^3/uL (4.0-10.0)
[2020-04-25 12:45] LABS: BLOOD UREA NITROGEN 16 MG/DL (7-18); CALCIUM LEVEL 8.9 MG/DL (8.8-10.2); CARBON DIOXIDE LEVEL 24 MEQ/L (21-32); CHLORIDE LEVEL 111 MEQ/L (98-107); CREATININE FOR GFR 0.64 MG/DL (0.55-1.30); GLOMERULAR FILTRATION RATE > 60.0 (>45); GLUCOSE, FASTING 132 MG/DL (70-100); POTASSIUM SERUM 3.9 MEQ/L (3.5-5.1); SODIUM LEVEL 141 MEQ/L (136-145)
[2020-04-25] MEDS ORDERED: LIDOCAINE 2% 100MG/5ML SDV (FOR ANES.) As Ordered ONE (12:54)
[2020-04-25] MEDS ORDERED: MIDAZOLAM INJ 2MG/2ML VIAL (J2250 PER 1MG) As Ordered ONE (12:54)
[2020-04-25] MEDS ORDERED: propofoL 200 MG/20 ML VIAL As Ordered ONE (12:54)
[2020-04-25] MEDS ORDERED: ROCURONIUM BROMIDE 50 MG/5 ML VIAL As Ordered ONE (12:54)
[2020-04-25] MEDS ORDERED: fentaNYL 250 MCG/5 ML INJECTION (J3010) As Ordered ONE (12:54)
[2020-04-25] MEDS ORDERED: ONDANSETRON 4MG/2ML VIAL As Ordered ONE ×2 (12:55→16:20)
[2020-04-25] MEDS ORDERED: dexameTHASONE 4 MG/ML 1ML VIAL (J1100 PER 1MG) As Ordered ONE (12:55)
[2020-04-25] MEDS ORDERED: BUPIVACAINE LIPOSOME/PF 1.3% 20ML VIAL (13.3MG/ML)(EXPAREL)(C9290 PER1MG) As Ordered ONE (13:30)
[2020-04-25] MEDS ORDERED: TRANEXAMIC ACID 100 MG/ML 10ML VIAL As Ordered ONE (13:30)
[2020-04-25] MEDS ORDERED: EPINEPHrine INJ 1 MG/ML 1ML AMP As Ordered ONE (13:30)
[2020-04-25] MEDS ORDERED: CLINDAMYCIN INJ 900MG/6ML VIAL As Ordered ONE (13:30)
[2020-04-25] MEDS ORDERED: KETOROLAC 60MG 2ML VIAL As Ordered ONE (14:18)
[2020-04-25] MEDS ORDERED: PHENYLephrine HCL 500 MCG/5 ML (100MCG/ML) SYRINGE (J2370) As Ordered ONE ×2 (14:19→14:48)
[2020-04-25] MEDS ORDERED: HYDR-3713 PO (14:27)
[2020-04-25] MEDS ORDERED: SUGAMMADEX SODIUM 500 MG/5 ML VIAL (BRIDION) As Ordered ONE (15:18)
[2020-04-25] MEDS ORDERED: ACETAMINOPHEN 1000MG 100ML IV BTL (OFIRMEV) (J0131 PER 10MG) As Ordered ONE (16:00)
[2020-04-25] MEDS ORDERED: fentaNYL 100 MCG/2 ML INJECTION (J3010) As Ordered ONE (16:05)
[2020-04-25] MEDS: fentaNYL 100 MCG/2 ML INJECTION (J3010) IV PRN ×4 (16:07→16:25)
[2020-04-25] MEDS ORDERED: LR 1,000 ML IV SCH (16:15)
[2020-04-25] MEDS ORDERED: MORPHINE 4 MG/ML 1ML VIAL/SYRINGE (J2270) IV PRN (16:15)
[2020-04-25] MEDS ORDERED: ONDANSETRON 4MG/2ML VIAL IV PRN ×2 (16:15→16:30)
[2020-04-25] MEDS ORDERED: MORPHINE 2 MG/ML 1ML VIAL (J2270) As Ordered ONE (16:19)
[2020-04-25] MEDS: MORPHINE 2 MG/ML 1ML VIAL (J2270) IV PRN ×2 (16:28→19:18)
[2020-04-25] MEDS ORDERED: MEPERIDINE INJ 25 MG/ML VIAL (J2175) IV PRN (16:30)
[2020-04-25] MEDS ORDERED: METOCLOPRAMIDE INJ 10MG/2ML VIAL (J2765 PER 1) IV PRN (16:30)
[2020-04-25] MEDS ORDERED: oxyCODONE 5MG TAB PO PRN (16:30)
[2020-04-25] MEDS ORDERED: LR 1,000 ML IV ONE (16:30)
[2020-04-25] MEDS ORDERED: HYDROMORPHONE HCL 0.5 MG/ 0.5 ML SYRINGE (J1170 PER 1) As Ordered ONE (16:42)
[2020-04-25] MEDS ORDERED: HYDROMORPHONE HCL 0.5 MG/ 0.5 ML SYRINGE (J1170 PER 1) IV PRN (17:15)
[2020-04-25 17:30] VITALS: BP 121/76
[2020-04-25 18:00] VITALS: BP 116/72
[2020-04-25] MEDS ORDERED: GLUCAGON INJ 1MG VIAL SC PRN (18:30)
[2020-04-25] MEDS ORDERED: GLUCOSE 4GM CHEW TABLET PO PRN (18:30)
[2020-04-25] MEDS ORDERED: ACETAMINOPHEN TAB 650MG DOSE (2X325MG) PO PRN (18:30)
[2020-04-25] MEDS ORDERED: DEXTROSE 50% 50 ML SYRINGE IV PRN (18:30)
--- NOTE | 2020-04-25 18:32 | CR.PDOC ---
General Date of Consultation: Apr 25, 2020 Consultation REASON FOR CONSULTATION/CHIEF COMPLAINT: Medical co-management HISTORY OF PRESENT ILLNESS: Mrs. Pacheco is a 64 year old female here for right hip exploration with excision of mass and repair of abductor muscle. She was seen down in the PACU. When I saw her, she was in severe pain located in the right hip. She had been given a total of 100mg of fentanyl. Other than the pain in the hip, she denied any fever/chills, chest pain, dyspnea, abdominal pain, dysuria, or diarrhea. She does use Vicodin at home when she needs it, so she is not opioid naive. ALLERGIES: Please see below. HOME MEDICATIONS: Please see below. PAST MEDICAL HISTORY: 1. GERD. 2. Hyperlipidemia. 3. Diabetes mellitus. 4. Anxiety/depression PAST SURGICAL HISTORY: 1. Left total hip arthroplasty 2. Right total hip arthroplasty 3. Hysterectomy. 4. Multiple left shoulder surgeries 5. Right hip exploration with excision of mass and repair of abductor muscle FAMILY HISTORY: Mother had brain cancer SOCIAL HISTORY: Previous intermittent social smoker, quit 6 years ago. Denies alcohol use. Denies drug use REVIEW OF SYSTEMS: CONSTITUTIONAL: Denies any fever or chills. Denies lightheadedness or dizziness. ENT: Denies rhinorrhea. RESPIRATORY: Denies shortness of breath. CARDIOVASCULAR: Denies chest pain. GASTROINTESTINAL: Denies abdominal pain. Denies diarrhea. GENITOURINARY: Denies dysuria. CUTANEOUS: Denies rashes. MUSCULOSKELETAL: Reports severe pain from right hip NEUROLOGICAL: Denies paresthesias. PSYCHOLOGICAL: Denies anxiety. Denies depression. PHYSICAL EXAMINATION: VITAL SIGNS: Please see below. GENERAL: Physical distress from right hip pain HEENT: Head normocephalic/atraumatic, EOMI, sclera clear. NECK: Supple. RESPIRATORY: Diminished breath sounds. CARDIOVASCULAR: Regular rate and rhythm. ABDOMEN: Soft, nontender, no guarding or rebound tenderness. Normal bowel sounds. MUSCLE SKELETAL: Mild bilateral pitting edema NEUROLOGICAL: CN 312 grossly intact PSYCHOLOGICAL: Anxious and in distress from the pain LABORATORY DATA: Please see below. ASSESSMENT/PLAN: 1. Right hip exploration with excision of mass and repair of abductor muscle. -Orthopedic surgery performed today 04/25/2020 -Pending pathology results -On Percocet, OxyIR, and morphine for pain control 2. Diabetes mellitus type 2 -Despite history of DM, she is not on DM medications at home -Will put on POC glucose AC/HS and sliding scale insulin with hypoglycemic protocol -Monitor and adjust 3. Depression/Anxiety -We will continue antidepressants at this time 4. GERD -Continue omeprazole 5. DVT ppx -TEDs and sequentials Vital Signs/I&O Vital Signs Date Time Temp Pulse Resp B/P (MAP) Pulse Ox O2 Delivery O2 Flow Rate FiO2 04/25/20 17:30 98.2 85 18 121/76 (91) 92 Nasal Cannula 2.0 Laboratory Data Labs 24H Laboratory Tests 2 04/25/20 12:01: Nucleated Red Blood Cells % (auto) 0.0, Anion Gap 6L, Glomerular Filtration Rate > 60.0, Calcium Level 8.9 04/25/20 12:51: Bedside Glucose (Misc Panel) 132H CBC/BMP Laboratory Tests 04/25/20 12:01 Allergies Coded Allergies: latex (Verified Allergy, Intermediate, rash, 07/09/19) Penicillins (Verified Adverse Reaction, Mild, GI UPSET, 07/08/19) clavulanic acid (Verified Adverse Reaction, Mild, GI UPSET, 07/08/19) Home Medications Scheduled Amitriptyline HCl (Amitriptyline HCl) 10 Mg Tablet, 20 MG PO DAILY, (Reported) Omeprazole (Omeprazole) 20 Mg Capsule.dr, 20 MG PO BID, (Reported) Rosuvastatin Calcium (Crestor) 40 Mg Tablet, 40 MG PO DAILY for 30 Days, #30 (Reported) Sertraline Hcl (Zoloft) 100 Mg Tablet, 200 MG PO DAILY for 30 Days, #30 (Reported) Scheduled PRN Hydrocodone/Acetaminophen (Hydrocodone-Acetamin 5-325 mg) 1 Each Tablet, 1 TAB PO Q4HP PRN for PAIN, (Reported) TAMAR LUTHER DO Apr 25, 2020 18:32
[2020-04-25 20:00] VITALS: BP 116/72
[2020-04-25] MEDS: HumaLOG INSULIN (NovoLOG) PER UNIT SC SCH (21:00)
[2020-04-25] MEDS: CLINDAMYCIN 900 MG in IV 1 EA IV SCH (21:08)
[2020-04-25] MEDS: OMEPRAZOLE 20 MG CAP PO SCH (21:08)
[2020-04-25] MEDS: AMITRIPTYLINE 10 MG TAB PO SCH (21:08)
[2020-04-25] MEDS: PERCOCET 5MG/325MG TAB PO PRN (21:36)
[2020-04-25 22:00] VITALS: BP 123/73
[2020-04-25 23:00] VITALS: BP 106/63
[2020-04-26] VITALS: BP 104/63
[2020-04-26 02:00] VITALS: BP 105/63
[2020-04-26] MEDS: PERCOCET 5MG/325MG TAB PO PRN ×4 (02:20→21:18)
[2020-04-26] MEDS: CLINDAMYCIN 900 MG in IV 1 EA IV SCH (05:05)
[2020-04-26 06:00] VITALS: BP 104/63
[2020-04-26 06:36] LABS: ALT/SGPT 22 U/L (12-78); BILIRUBIN,TOTAL 0.2 MG/DL (0.2-1.0); BLOOD UREA NITROGEN 15 MG/DL (7-18); CALCIUM LEVEL 8.6 MG/DL (8.8-10.2); CARBON DIOXIDE LEVEL 24 MEQ/L (21-32); CHLORIDE LEVEL 109 MEQ/L (98-107); CREATININE FOR GFR 0.58 MG/DL (0.55-1.30); GLOMERULAR FILTRATION RATE > 60.0 (>45); GLUCOSE, FASTING 155 MG/DL (70-100); POTASSIUM SERUM 3.7 MEQ/L (3.5-5.1); SODIUM LEVEL 139 MEQ/L (136-145)
[2020-04-26] MEDS ORDERED: PERC5TAB12 PO (07:21)
[2020-04-26] MEDS: MOM 30ML SUSPENSION UDC PO SCH (08:54)
[2020-04-26] MEDS: MIRALAX *UNIT DOSE* 17GM PACKET PO SCH (08:56)
[2020-04-26] MEDS: HumaLOG INSULIN (NovoLOG) PER UNIT SC SCH ×4 (08:56→21:00)
[2020-04-26] MEDS: OMEPRAZOLE 20 MG CAP PO SCH ×2 (08:57→21:17)
[2020-04-26] MEDS: ASPIRIN 325 MG TAB PO SCH (08:57)
[2020-04-26] MEDS: SERTRALINE 100 MG TAB PO SCH (08:57)
[2020-04-26] MEDS: ROSUVASTATIN 10 MG TAB (CRESTOR) PO SCH (08:57)
[2020-04-26] MEDS ORDERED: PREVNAR 13 VACCINE SYRINGE IM ONE (09:00)
[2020-04-26 10:00] VITALS: BP 111/63
[2020-04-26 14:00] VITALS: BP 126/74
--- NOTE | 2020-04-26 16:39 | IPN ---
DATE: 04/25/2020 SUBJECTIVE: The patient was seen and examined preoperatively. She wishes to go ahead with this right hip surgical exploration. 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 PLAN: The plan as she wished to go ahead with is to explore this wound, try to decompress the organized hematoma and explore the abductors to see if there is any evidence of pulloff and attempt to repair them. She knows that if for some reason we find something wrong with the prosthesis and are able to manage that at the same time, we would proceed with that. I find this to be unlikely. Hopefully we will not have to get down to that level. My suspicion for loosening or infection is very low given the preoperative workup. IRA
--- NOTE | 2020-04-26 16:42 | RO ---
DATE OF OPERATION: 04/25/2020 PREOPERATIVE DIAGNOSIS: Right hip pain and weakness following arthroplasty; rule out abductor tear and patient was complaining of a lateral mass. POSTOPERATIVE DIAGNOSIS: Right hip pain and weakness following arthroplasty; rule out abductor tear and patient was complaining of a lateral mass. PROCEDURES: 1. Right hip excision of soft tissue mass approximately 15 cm in length and 5 cm wide. 2. Arthrotomy of right hip. 3. Repair of abductor pull off through bony holes. SURGEON: Poli Ramírez M.D. PROCUREMENT ANALYST: Tommy Crook ANESTHESIA: General. ESTIMATED BLOOD LOSS: 200. COMPLICATIONS: None. INDICATIONS: [id number]-old woman who underwent a right total hip arthroplasty by one of my previous partners toward the end of last year and she has been bothered by some discomfort over the lateral side of her hip and some fullness that I felt was probably an organized hematoma. She wanted to get this excised but she also had a significant limp and abductor weakness, and she wanted to go ahead with an exploration to see if the abductors might have pulled off or to see if there might be other answers. She understood the nature of this, the risk of bleeding, infection, damage to nerves and vessels, persistent pain, stiffness, likely ongoing weakness. Some risk of blood clots, , among others. DESCRIPTION OF PROCEDURE: The patient was taken to the operating room and placed in the left lateral decubitus position on the [place] positioner. All layers were padded appropriately. The right hip was prepped and draped in the usual sterile fashion. I marked out this painful mass that was just posterior to her incision that was approximately 15 x 5 cm. We prepped and draped in the usual fashion. Timeout was again performed. I created a curvilinear incision through the previous incision and sharply dissected down through subcutaneous tissue. I then elevated a plane above the fascia mostly posteriorly, and identified this mass, which was indistinct but I was able to carefully dissect it out using a cautery and a dissecting scissor. It appeared to be mostly scar; possibly some organized hematoma, and I palpated in this area and was not able to detect any further mass. It did not appear to be aggressive or malignant in any way. I believe it was just postoperative scarring and changes. I then made an incision in the fascia binh and exposed the abductor and the greater trochanter. The posterior aspect of the abductor appeared to be intact. It looked as though the anterior aspect of the trochanter and proximal femur were somewhat bare and absent of abductor muscle. The edge of the abductor muscle was not obvious. I then exposed the hip in the usual fashion for a total hip and split the adductor minimus proximally at the tip of the trochanter and then carefully dissected along the anterior aspect of the femur down to the prosthesis and exposed the actual stem of the prosthesis. And, in doing so I was able to mobilize the abductors to a reasonable degree but not completely back on the lateral side of the hip, and there were a couple of stitches down in the abductor tissue close to the femoral component and also a stitch around the greater trochanter. These were removed. Once I mobilized the abductor as much as I could, I also used a ford to try to dissect between the abductor and the tensor fascia binh. I was able to place several drill holes in the trochanter and the proximal anterior femur and used a curved suture passer that is often used for open rotator cuff repairs, a drill and placed a total of five drill holes in the femur and then used three separate #2 Ethibond sutures, took several bites of the abductor tendon proximally exiting about where the drill hole had exited anteriorly, and brought the suture back out in a similar location but a little distal. I passed these both through the holes. A similar stitch was placed just distal to this, again taking several bites and passing them both through the two holes. They were snapped and kept aside. A third hold was created more distally. This was much more dense bone and I placed several bites through the abductor and passed one end through the bone and the other end came out through the tendon anteriorly. These were tied and excellent solid repair was noted. I then used several [id number] #1 Vicryl stitches to augment the repair and in doing so, was able to cover the permanent sutures as well. I had irrigated multiple times. I also placed TXA deep in the wound prior to this closure and at this point Exparel was injected in the deep tissues. The fascia binh was repaired with #1 Vicryl suture and running STRATAFIX in both directions. I then placed several 2-0 Vicryl stitches in the subcutaneous tissue posteriorly tacking the subcutaneous tissue down to the fascia to close the space to reduce the chance of recurrent hematoma. Subcutaneous tissue was closed with 2-0 Vicryl, the skin with mamie. Sterile dressing was applied. She was taken to the recovery room in stable condition. There were no known complications. I will plan to keep her overnight in the hospital at least for pain control and antibiotics. The botany laboratory assistant was instrumental in holding retractors and assisting in passing the sutures through the bone holes, assisting in positioning the hip for exposure, and assisting in wound closure. This was coded as an unusually difficult procedure as this was an arthrotomy, which was done primarily to retrieve the abductors and try to bring them up more anteriorly and laterally to repair them to a more anatomical position. This was much more involved and took much more time than a simple hip arthrotomy would have. The plan will be routine postop. I will allow weightbearing as tolerated with a walker. IRA
[2020-04-26] MEDS: AMITRIPTYLINE 10 MG TAB PO SCH (21:18)
[2020-04-26 22:00] VITALS: BP 121/68
[2020-04-27 02:00] VITALS: BP 120/70
[2020-04-27] MEDS: PERCOCET 5MG/325MG TAB PO PRN ×3 (02:34→13:41)
[2020-04-27 06:00] VITALS: BP 121/67
[2020-04-27 07:55] LABS: ALBUMIN 3.1 GM/DL (3.2-5.2); ALT/SGPT 21 U/L (12-78); BILIRUBIN,TOTAL 0.3 MG/DL (0.2-1.0); BLOOD UREA NITROGEN 12 MG/DL (7-18); CALCIUM LEVEL 8.3 MG/DL (8.8-10.2); CARBON DIOXIDE LEVEL 26 MEQ/L (21-32); CHLORIDE LEVEL 107 MEQ/L (98-107); CREATININE FOR GFR 0.54 MG/DL (0.55-1.30); GLOMERULAR FILTRATION RATE > 60.0 (>45); GLUCOSE, FASTING 165 MG/DL (70-100); POTASSIUM SERUM 4.1 MEQ/L (3.5-5.1); SODIUM LEVEL 138 MEQ/L (136-145)
[2020-04-27] MEDS: MIRALAX *UNIT DOSE* 17GM PACKET PO SCH (08:48)
[2020-04-27] MEDS: OMEPRAZOLE 20 MG CAP PO SCH (08:49)
[2020-04-27] MEDS: ASPIRIN 325 MG TAB PO SCH (08:49)
[2020-04-27] MEDS: MOM 30ML SUSPENSION UDC PO SCH (08:49)
[2020-04-27] MEDS: ROSUVASTATIN 10 MG TAB (CRESTOR) PO SCH (08:49)
[2020-04-27] MEDS: SERTRALINE 100 MG TAB PO SCH (08:49)
[2020-04-27] MEDS: HumaLOG INSULIN (NovoLOG) PER UNIT SC SCH ×2 (08:51→12:00)
--- NOTE | 2020-05-03 15:53 | DS ---
DATE OF ADMISSION: 04/25/2020 DATE OF DISCHARGE: 04/27/2020 ATTENDING PHYSICIAN: Dr. Poli Ramírez ADMITTING DIAGNOSIS: Right hip pain and weakness following arthroplasty with a soft tissue mass laterally. OTHER DIAGNOSES: 1. Gastroesophageal reflux disease. 2. Hyperlipidemia. 3. Diabetes. 4. Anxiety. 5. Depression. DISCHARGE DIAGNOSIS: Right hip pain and weakness following arthroplasty with soft tissue mass laterally, status post excision of soft tissue mass with an arthrotomy of the right hip and repair of the abductor pulloff. HISTORY: Patient is a 64-year-old woman who underwent a right hip total hip arthroplasty toward the end of last year. She had continued pain over the lateral side of her hip with fullness. She wanted to get this mass excised but also had a significant limp and abductor weakness. She consented for an elective mass excision and exploration to see if the abductors might have pulled off. She consented for this with Dr. Ramírez. OPERATION PERFORMED: Right hip excision of soft tissue mass, approximately 15 cm x 5 cm. Arthrotomy of right hip with repair of abductor pulloff through bony holes. HOSPITAL COURSE: The patient underwent a right hip arthrotomy with soft tissue mass excision and repair of the abductors under general anesthesia, which was uneventful. Her hospital course was without complication. She was up with physical therapy per their protocol, weightbearing as tolerated on the right lower extremity. Patient was discharged on oral pain medications and will resume her preoperative medications and diet. She will use her thromboembolic deterrent stockings and take her anticoagulant as directed to prevent deep venous thrombosis. Patient will followup in our office in 12-14 days for a wound check and staple removal. She is encouraged to contact our office sooner if there is any increase in pain, redness, drainage, numbness or tingling in the extremity, fever greater than 101 degrees, or any other concerns. Please see medical record for additional details. IRA
== END 2020-04-27 13:50 | disposition home or self-care (01) | DRG 465 ==
LOC: M SDC 11:40 → M MS5PR 17:25 → M SDC 17:40 → M MS5PR 17:41
PROVIDERS: ADMIT Orthopaedic Surgery; ATTEND Orthopaedic Surgery
PROC: 0KQQ0ZZ Repair Right Upper Leg Muscle, Open Approach (ICD-10-PCS; 2020-04-25)
PROC: 0JBL0ZZ Excision of Right Upper Leg Subcutaneous Tissue and Fascia, Open Approach (ICD-10-PCS; principal; 2020-04-25 13:30)
DX: T84.89XA Other specified complication of internal orthopedic prosthetic devices, implants and grafts, initial encounter (principal); K21.9 Gastro-esophageal reflux disease without esophagitis; E78.5 Hyperlipidemia, unspecified; F41.9 Anxiety disorder, unspecified; F32.9 Major depressive disorder, single episode, unspecified; E11.9 Type 2 diabetes mellitus without complications; Y83.1 Surgical operation with implant of artificial internal device as the cause of abnormal reaction of the patient, or of later complication, without mention of misadventure at the time of the procedure; Z79.899 Other long term (current) drug therapy; Z88.0 Allergy status to penicillin; Z88.8 Allergy status to other drugs, medicaments and biological substances; Z91.010 Allergy to peanuts; Z96.651 Presence of right artificial knee joint

== ENCOUNTER → 2020-08-14 | Outpatient (REF) | payer MEDICARE ==
[~2020-08-14] MED LIST changes: -CLINDAMYCIN 900 MG in IV 1 EA IV ONE; +HYDR-3713 PO; -LR 1,000 ML IV ONE; +PERC5TAB12 PO
== END ==
LOC: M SFHCCLAY 13:25
PROVIDERS: ATTEND Physician Assistant
DX: R30.0 Dysuria (principal)
CPT/HCPCS: 81002; 87088; 87186; G0463

== ENCOUNTER → 2020-10-11 | Outpatient (REF) | payer MEDICARE ==
[~2020-10-11] MED LIST changes: -AMIT10TA PO; +AMIT10TA7 PO
[2020-10-11 16:12] LABS: BLOOD UREA NITROGEN 11 MG/DL (7-18); CREATININE FOR GFR 0.57 MG/DL (0.55-1.30); GLOMERULAR FILTRATION RATE > 60.0 (>45); GLUCOSE, FASTING 165 MG/DL (70-100); SODIUM LEVEL 139 MEQ/L (136-145)
[2020-10-11 16:13] LABS: ALT/SGPT 57 U/L (12-78); BILIRUBIN,TOTAL 0.3 MG/DL (0.2-1.0); CALCIUM LEVEL 9.3 MG/DL (8.8-10.2); CARBON DIOXIDE LEVEL 28 MEQ/L (21-32); CHLORIDE LEVEL 104 MEQ/L (98-107); CHOLESTEROL LEVEL 276 MG/DL (<200); CHOLESTEROL RISK RATIO 6.133 (<5); HDL CHOLESTEROL 45 MG/DL (>40); LDL CHOLESTEROL 194 MG/DL (<100); NON-HDL-C 231 MG/DL; POTASSIUM SERUM 4.4 MEQ/L (3.5-5.1); TOTAL PROTEIN 7.3 GM/DL (6.4-8.2); TRIGLYCERIDES LEVEL 184 MG/DL (<150)
[2020-10-11 16:20] LABS: TOTAL 25(OH) VITAMIN D 13.4 NG/ML (30.0-100.0)
[2020-10-11 16:22] LABS: HEMOGLOBIN 12.2 g/dl (12.0-15.5); MEAN CORPUSCULAR HEMOGLOBIN 26.1 pg (27.0-33.0); MEAN CORPUSCULAR HGB CONC 30.5 g/dl (32.0-36.5); MEAN CORPUSCULAR VOLUME 85.7 fl (80.0-96.0); PLATELET COUNT, AUTOMATED 195 10^3/uL (150-450); RED BLOOD COUNT 4.67 10^6/uL (4.00-5.40); WHITE BLOOD COUNT 6.6 10^3/uL (4.0-10.0)
[2020-10-11 16:39] LABS: CREATININE, URINE 77.8 MG/DL; MALB URINE SIEMENS 16.9 MG/L; MAU/CREAT RATIO 21.7 MCG/MG (0.0-30.0)
[2020-10-11 16:56] LABS: HEMOGLOBIN A1c 8.2 %
== END ==
LOC: M SFHCCLAY 11:17
PROVIDERS: ATTEND Nurse Practitioner Family
DX: E78.5 Hyperlipidemia, unspecified (principal); I10 Essential (primary) hypertension; E11.9 Type 2 diabetes mellitus without complications; E55.9 Vitamin D deficiency, unspecified
CPT/HCPCS: 80053; 80061; 82043; 82306; 83036; 85027; G0463

== ENCOUNTER → 2021-06-12 | Outpatient (REF) | payer MEDICARE ==
[2021-06-12 16:45] LABS: CHOLESTEROL RISK RATIO 5.578 (<5)
[2021-06-12 17:22] LABS: HEMOGLOBIN A1c 7.2 %
== END ==
LOC: M SFHCCLAY 09:56
PROVIDERS: ATTEND Family Medicine
DX: E11.9 Type 2 diabetes mellitus without complications (principal); I10 Essential (primary) hypertension; E55.9 Vitamin D deficiency, unspecified

== ENCOUNTER → 2021-07-17 | Outpatient (REF) | payer MEDICARE | LOC: M SFHCCLAY 11:22 | PROVIDERS: ATTEND Nurse Practitioner Family | DX: R09.81 Nasal congestion (principal) ==

== ENCOUNTER → 2021-10-31 | Outpatient (REF) | payer MEDICARE ==
[2021-10-31 16:20] LABS: BLOOD UREA NITROGEN 18 MG/DL (7-18); CALCIUM LEVEL 9.1 MG/DL (8.8-10.2); CARBON DIOXIDE LEVEL 25 MEQ/L (21-32); CHLORIDE LEVEL 108 MEQ/L (98-107); CREATININE FOR GFR 0.66 MG/DL (0.55-1.30); GLOMERULAR FILTRATION RATE > 60.0 (>45); GLUCOSE, FASTING 171 MG/DL (70-100); POTASSIUM SERUM 4.3 MEQ/L (3.5-5.1); SODIUM LEVEL 139 MEQ/L (136-145)
== END ==
LOC: M SFHCCLAY 09:52
PROVIDERS: ATTEND Family Medicine
DX: Z01.818 Encounter for other preprocedural examination (principal); E11.9 Type 2 diabetes mellitus without complications

== ENCOUNTER → 2022-04-30 | Outpatient (REF) | payer MEDICARE ==
[~2022-04-30] MED LIST changes: +GLIP5TAB8 PO
[2022-04-30 11:58] LABS: HEMATOCRIT 38.2 % (36.0-47.0); HEMOGLOBIN 11.8 g/dl (12.0-15.5); MEAN CORPUSCULAR HEMOGLOBIN 27.5 pg (27.0-33.0); MEAN CORPUSCULAR HGB CONC 30.9 g/dl (32.0-36.5); PLATELET COUNT, AUTOMATED 137 10^3/uL (150-450); RED BLOOD COUNT 4.29 10^6/uL (4.00-5.40); WHITE BLOOD COUNT 5.2 10^3/uL (4.0-10.0)
[2022-04-30 12:34] LABS: ALBUMIN 3.7 GM/DL (3.2-5.2); ALT/SGPT 53 U/L (12-78); BILIRUBIN,TOTAL 0.6 MG/DL (0.2-1.0); BLOOD UREA NITROGEN 14 MG/DL (7-18); CALCIUM LEVEL 8.7 MG/DL (8.8-10.2); CARBON DIOXIDE LEVEL 25 MEQ/L (21-32); CHLORIDE LEVEL 107 MEQ/L (98-107); CHOLESTEROL LEVEL 149 MG/DL (<200); CHOLESTEROL RISK RATIO 3.547 (<5); GLOMERULAR FILTRATION RATE > 60.0 (>45); GLUCOSE, FASTING 213 MG/DL (70-100); HDL CHOLESTEROL 42 MG/DL (>40); LDL CHOLESTEROL 86 MG/DL (<100); NON-HDL-C 107 MG/DL; SODIUM LEVEL 138 MEQ/L (136-145); TOTAL PROTEIN 6.6 GM/DL (6.4-8.2); TRIGLYCERIDES LEVEL 105 MG/DL (<150)
== END ==
LOC: M SFHCCLAY 09:34
PROVIDERS: ATTEND Nurse Practitioner Family
DX: E11.9 Type 2 diabetes mellitus without complications (principal); E78.5 Hyperlipidemia, unspecified; E55.9 Vitamin D deficiency, unspecified; Z79.84 Long term (current) use of oral hypoglycemic drugs

== ENCOUNTER → 2022-05-13 | Outpatient (CLI) | payer MEDICARE | LOC: M LABSMTC 11:41 | PROVIDERS: ATTEND Anesthesiology | DX: Z01.818 Encounter for other preprocedural examination (principal); Z11.52 Encounter for screening for COVID-19 ==

== ENCOUNTER 2022-05-15 12:36 | Day surgery (SDC) | payer MEDICARE ==
[~2022-05-15] VITALS: Ht 167.6 cm; Wt 84.1 kg
[~2022-05-15 12:36] MED LIST changes: +NS 1,000 ML IV ONE
[2022-05-15] MEDS ORDERED: LIDOCAINE 2% 100MG/5ML SDV (FOR ANES.) As Ordered ONE (14:21)
[2022-05-15] MEDS ORDERED: propofoL 200 MG/20 ML VIAL As Ordered ONE (14:21)
[2022-05-15 14:50] VITALS: BP 131/83
== END 2022-05-15 15:01 | disposition home or self-care (01) ==
LOC: M OPP 12:36
PROVIDERS: ATTEND Surgery
DX: Z12.11 Encounter for screening for malignant neoplasm of colon (principal); K63.5 Polyp of colon; K64.1 Second degree hemorrhoids; E11.9 Type 2 diabetes mellitus without complications; E78.00 Pure hypercholesterolemia, unspecified; F32.9 Major depressive disorder, single episode, unspecified; F41.9 Anxiety disorder, unspecified; M13.80 Other specified arthritis, unspecified site; Z79.02 Long term (current) use of antithrombotics/antiplatelets; Z79.84 Long term (current) use of oral hypoglycemic drugs; Z79.891 Long term (current) use of opiate analgesic; Z79.899 Other long term (current) drug therapy; Z88.0 Allergy status to penicillin; Z91.040 Latex allergy status; Z80.42 Family history of malignant neoplasm of prostate

== ENCOUNTER → 2022-07-30 | Outpatient (REF) | payer MEDICARE ==
[~2022-07-30] MED LIST changes: -NS 1,000 ML IV ONE
[2022-07-30 11:53] LABS: HEMATOCRIT 38.5 % (36.0-47.0); HEMOGLOBIN 12.2 g/dl (12.0-15.5); MEAN CORPUSCULAR HEMOGLOBIN 28.3 pg (27.0-33.0); MEAN CORPUSCULAR HGB CONC 31.7 g/dl (32.0-36.5); MEAN CORPUSCULAR VOLUME 89.3 fl (80.0-96.0); PLATELET COUNT, AUTOMATED 135 10^3/uL (150-450); RED BLOOD COUNT 4.31 10^6/uL (4.00-5.40)
[2022-07-30 12:18] LABS: HEMOGLOBIN A1c 8.3 % (4.0-6.0)
[2022-07-30 12:24] LABS: ALBUMIN 3.8 G/DL (3.2-5.2); ALKALINE PHOSPHATASE 79 U/L (46-116); ALT/SGPT 61 U/L (7.0-40); AST/SGOT 59 U/L (<34); BILIRUBIN,TOTAL 0.6 MG/DL (0.3-1.2); BLOOD UREA NITROGEN 21 MG/DL (9-23); CARBON DIOXIDE LEVEL 26 MMOL/L (20-31); CHLORIDE LEVEL 103 MMOL/L (98-107); CHOLESTEROL LEVEL 165 MG/DL (<200); CHOLESTEROL RISK RATIO 3.87 (<5); CREATININE FOR GFR 0.58 MG/DL (0.55-1.30); GLOMERULAR FILTRATION RATE > 60.0 (>45); GLUCOSE, FASTING 192 MG/DL (74-106); HDL CHOLESTEROL 42.6 MG/DL (>40); LDL CHOLESTEROL 97.2 MG/DL (<100); NON-HDL-C 122 MG/DL; POTASSIUM SERUM 3.9 MMOL/L (3.5-5.1); SODIUM LEVEL 140 MMOL/L (136-145); TOTAL PROTEIN 6.4 G/DL (5.7-8.2); TRIGLYCERIDES LEVEL 126 MG/DL (<150)
== END ==
LOC: M SFHCCLAY 08:07
PROVIDERS: ATTEND Nurse Practitioner Family
DX: E11.9 Type 2 diabetes mellitus without complications (principal); E78.5 Hyperlipidemia, unspecified; I10 Essential (primary) hypertension

== ENCOUNTER → 2022-11-22 | Outpatient (REF) | payer MEDICARE ==
[2022-11-22 11:41] LABS: BASO # 0.1 10^3/uL (0.0-0.2); BASO % 0.8 % (0.0-1.0); EOS # 0.1 10^3/uL (0.0-0.5); EOS % 1.1 % (0.0-3.0); HEMATOCRIT 40.8 % (36.0-47.0); HEMOGLOBIN 12.8 g/dl (12.0-15.5); LYMPH # 0.8 10^3/uL (1.5-5.0); LYMPH % 12.8 % (24.0-44.0); MEAN CORPUSCULAR HEMOGLOBIN 29.2 pg (27.0-33.0); MEAN CORPUSCULAR HGB CONC 31.4 g/dl (32.0-36.5); MEAN CORPUSCULAR VOLUME 92.9 fl (80.0-96.0); MONO # 0.5 10^3/uL (0.0-0.8); MONO % 7.2 % (2.0-8.0); NEUTROPHILS # 5.1 10^3/uL (1.5-8.5); NEUTROPHILS % 77.6 % (36.0-66.0); PLATELET COUNT, AUTOMATED 147 10^3/uL (150-450); RED BLOOD COUNT 4.39 10^6/uL (4.00-5.40); WHITE BLOOD COUNT 6.5 10^3/uL (4.0-10.0)
[2022-11-22 11:56] LABS: HEMOGLOBIN A1c 7.3 % (4.0-6.0)
[2022-11-22 12:12] LABS: ALKALINE PHOSPHATASE 77 U/L (46-116); ALT/SGPT 57 U/L (7.0-40); AST/SGOT 56 U/L (<34); BILIRUBIN,TOTAL 0.5 MG/DL (0.3-1.2); BLOOD UREA NITROGEN 13 MG/DL (9-23); CALCIUM LEVEL 8.9 MG/DL (8.3-10.6); CARBON DIOXIDE LEVEL 28 MMOL/L (20-31); CHLORIDE LEVEL 106 MMOL/L (98-107); CHOLESTEROL LEVEL 136 MG/DL (<200); CHOLESTEROL RISK RATIO 2.67 (<5); CREATININE FOR GFR 0.57 MG/DL (0.55-1.30); GLOMERULAR FILTRATION RATE > 60.0 (>45); GLUCOSE, FASTING 164 MG/DL (74-106); HDL CHOLESTEROL 50.9 MG/DL (>40); LDL CHOLESTEROL 70.5 MG/DL (<100); NON-HDL-C 85.1 MG/DL; POTASSIUM SERUM 4.1 MMOL/L (3.5-5.1); SODIUM LEVEL 138 MMOL/L (136-145); TOTAL PROTEIN 6.9 G/DL (5.7-8.2); TRIGLYCERIDES LEVEL 73 MG/DL (<150)
[2022-11-22 12:13] LABS: TOTAL 25(OH) VITAMIN D 13.8 NG/ML (20.0-100.0)
== END ==
LOC: M SFHCCLAY 08:42
PROVIDERS: ATTEND Nurse Practitioner Family
DX: R74.8 Abnormal levels of other serum enzymes (principal); E55.9 Vitamin D deficiency, unspecified; E11.65 Type 2 diabetes mellitus with hyperglycemia; E78.5 Hyperlipidemia, unspecified; I10 Essential (primary) hypertension; Z79.899 Other long term (current) drug therapy

== ENCOUNTER → 2023-04-10 | Outpatient (REF) | payer MEDICARE ==
[2023-04-10 13:23] LABS: ALBUMIN 3.9 G/DL (3.2-5.2); ALKALINE PHOSPHATASE 87 U/L (46-116); ALT/SGPT 62 U/L (7.0-40); AST/SGOT 60 U/L (<34); BILIRUBIN,TOTAL 0.6 MG/DL (0.3-1.2); BLOOD UREA NITROGEN 16 MG/DL (9-23); CARBON DIOXIDE LEVEL 29 MMOL/L (20-31); CHLORIDE LEVEL 104 MMOL/L (98-107); CHOLESTEROL LEVEL 170 MG/DL (<200); CHOLESTEROL RISK RATIO 2.66 (<5); CREATININE FOR GFR 0.52 MG/DL (0.55-1.30); GLOMERULAR FILTRATION RATE > 60.0 (>45); GLUCOSE, FASTING 196 MG/DL (74-106); HDL CHOLESTEROL 63.7 MG/DL (>40); LDL CHOLESTEROL 86.5 MG/DL (<100); NON-HDL-C 106.3 MG/DL; POTASSIUM SERUM 4.2 MMOL/L (3.5-5.1); SODIUM LEVEL 139 MMOL/L (136-145); TOTAL PROTEIN 6.8 G/DL (5.7-8.2); TRIGLYCERIDES LEVEL 99 MG/DL (<150)
[2023-04-10 13:46] LABS: HEMOGLOBIN A1c 7.2 % (4.0-6.0)
== END ==
LOC: M SFHCCLAY 08:49
PROVIDERS: ATTEND Nurse Practitioner Family
DX: E55.9 Vitamin D deficiency, unspecified (principal); E11.65 Type 2 diabetes mellitus with hyperglycemia; E78.5 Hyperlipidemia, unspecified; I10 Essential (primary) hypertension; K76.0 Fatty (change of) liver, not elsewhere classified; F32.9 Major depressive disorder, single episode, unspecified

== ENCOUNTER → 2023-08-28 | Outpatient (CLI) | payer MEDICARE ==
[~2023-08-28] MED LIST changes: +GLIP5TAB17 PO; -GLIP5TAB8 PO
== END ==
LOC: M CLY 10:58
PROVIDERS: ATTEND Nurse Practitioner Family
DX: M19.071 Primary osteoarthritis, right ankle and foot (principal)

== ENCOUNTER → 2023-10-22 | Outpatient (REF) | payer MEDICARE ==
[2023-10-22 18:21] LABS: ALBUMIN 3.9 G/DL (3.2-5.2); ALKALINE PHOSPHATASE 79 U/L (46-116); ALT/SGPT 58 U/L (7.0-40); AST/SGOT 75 U/L (<34); BILIRUBIN,TOTAL 0.9 MG/DL (0.3-1.2); BLOOD UREA NITROGEN 14 MG/DL (9-23); CALCIUM LEVEL 9.4 MG/DL (8.3-10.6); CARBON DIOXIDE LEVEL 24 MMOL/L (20-31); CHLORIDE LEVEL 106 MMOL/L (98-107); CHOLESTEROL LEVEL 140 MG/DL (<200); CHOLESTEROL RISK RATIO 3.67 (<5); CREATININE FOR GFR 0.57 MG/DL (0.55-1.30); GLOMERULAR FILTRATION RATE > 60.0 (>45); GLUCOSE, FASTING 182 MG/DL (74-106); HDL CHOLESTEROL 38.1 MG/DL (>40); LDL CHOLESTEROL 80.5 MG/DL (<100); NON-HDL-C 101.9 MG/DL; POTASSIUM SERUM 3.8 MMOL/L (3.5-5.1); SODIUM LEVEL 137 MMOL/L (136-145); TOTAL PROTEIN 6.8 G/DL (5.7-8.2); TRIGLYCERIDES LEVEL 107 MG/DL (<150)
[2023-10-22 18:22] LABS: TOTAL 25(OH) VITAMIN D 88.9 NG/ML (20.0-100.0)
[2023-10-22 18:33] LABS: CREATININE, URINE 267.7 MG/DL
[2023-10-22 18:34] LABS: HEMOGLOBIN A1c 7.6 % (4.0-6.0)
== END ==
LOC: M SFHCCLAY 11:39
PROVIDERS: ATTEND Nurse Practitioner Family
DX: E55.9 Vitamin D deficiency, unspecified (principal); E11.65 Type 2 diabetes mellitus with hyperglycemia; E78.5 Hyperlipidemia, unspecified; I10 Essential (primary) hypertension; K76.0 Fatty (change of) liver, not elsewhere classified; F32.9 Major depressive disorder, single episode, unspecified

== ENCOUNTER → 2024-04-23 | Outpatient (REF) | payer MEDICARE ==
[2024-04-23 11:35] LABS: ALBUMIN 3.7 G/DL (3.2-5.2); ALKALINE PHOSPHATASE 68 U/L (46-116); ALT/SGPT 21 U/L (7.0-40); AST/SGOT 19 U/L (<34); BILIRUBIN,TOTAL 0.5 MG/DL (0.3-1.2); BLOOD UREA NITROGEN 16 MG/DL (9-23); CALCIUM LEVEL 9.4 MG/DL (8.3-10.6); CARBON DIOXIDE LEVEL 27 MMOL/L (20-31); CHLORIDE LEVEL 107 MMOL/L (98-107); CHOLESTEROL LEVEL 163 MG/DL (<200); CHOLESTEROL RISK RATIO 3.38 (<5); CREATININE FOR GFR 0.55 MG/DL (0.55-1.30); GLOMERULAR FILTRATION RATE > 60.0 (>45); GLUCOSE, FASTING 140 MG/DL (74-106); HDL CHOLESTEROL 48.1 MG/DL (>40); LDL CHOLESTEROL 90.1 MG/DL (<100); NON-HDL-C 114.9 MG/DL; POTASSIUM SERUM 4.1 MMOL/L (3.5-5.1); SODIUM LEVEL 140 MMOL/L (136-145); TOTAL PROTEIN 6.6 G/DL (5.7-8.2); TRIGLYCERIDES LEVEL 124 MG/DL (<150)
[2024-04-23 11:36] LABS: TOTAL 25(OH) VITAMIN D 70.4 NG/ML (20.0-100.0)
[2024-04-23 11:59] LABS: HEMOGLOBIN A1c 7.1 % (4.0-6.0)
== END ==
LOC: M SFHCCLAY 08:19
PROVIDERS: ATTEND Nurse Practitioner Family
DX: E55.9 Vitamin D deficiency, unspecified (principal); E11.65 Type 2 diabetes mellitus with hyperglycemia; E78.5 Hyperlipidemia, unspecified; I10 Essential (primary) hypertension; K76.0 Fatty (change of) liver, not elsewhere classified; F32.9 Major depressive disorder, single episode, unspecified; Z78.0 Asymptomatic menopausal state

== ENCOUNTER → 2024-11-26 | Outpatient (REF) | payer MEDICARE ==
[~2024-11-26] MED LIST changes: +MORP-138 PO; -MORP15TASA PO
[2024-11-26 17:19] LABS: ALBUMIN 3.9 G/DL (3.2-5.2); ALKALINE PHOSPHATASE 72 U/L (35-104); ALT/SGPT 23 U/L (7.0-40); AST/SGOT 28 U/L (<34); BILIRUBIN,TOTAL 0.6 MG/DL (0.3-1.2); BLOOD UREA NITROGEN 15 MG/DL (9-23); CALCIUM LEVEL 9.1 MG/DL (8.3-10.6); CARBON DIOXIDE LEVEL 27 MMOL/L (20-31); CHLORIDE LEVEL 106 MMOL/L (98-107); CHOLESTEROL LEVEL 158 MG/DL (<200); CHOLESTEROL RISK RATIO 3.24 (<5); CREATININE FOR GFR 0.57 MG/DL (0.55-1.30); GLOMERULAR FILTRATION RATE > 90.0 (>39); GLUCOSE, FASTING 151 MG/DL (74-106); HDL CHOLESTEROL 48.7 MG/DL (>40); LDL CHOLESTEROL 86.5 MG/DL (<100); NON-HDL-C 109.3 MG/DL; POTASSIUM SERUM 4.2 MMOL/L (3.5-5.1); SODIUM LEVEL 142 MMOL/L (136-145); TOTAL PROTEIN 6.8 G/DL (5.7-8.2); TRIGLYCERIDES LEVEL 114 MG/DL (<150)
[2024-11-26 17:58] LABS: HEMOGLOBIN A1c 7.2 % (4.0-6.0)
== END ==
LOC: M SFHCCLAY 10:58
PROVIDERS: ATTEND Nurse Practitioner Family
DX: E11.9 Type 2 diabetes mellitus without complications (principal); E78.5 Hyperlipidemia, unspecified

== ENCOUNTER → 2025-04-04 | Outpatient (REF) | payer MEDICARE ==
[~2025-04-04] MED LIST changes: +AMIT10TA11 PO; -AMIT10TA7 PO
[2025-04-04 13:12] LABS: ESTIMATED AVERAGE GLUCOSE 154.0 MG/DL (60-110)
[2025-04-04 13:25] LABS: ALT/SGPT 15 U/L (7.0-40); AST/SGOT 17 U/L (<34); CALCIUM LEVEL 8.9 MG/DL (8.3-10.6); CARBON DIOXIDE LEVEL 25 MMOL/L (20-31); CHLORIDE LEVEL 109 MMOL/L (98-107); CHOLESTEROL LEVEL 139 MG/DL (<200); CHOLESTEROL RISK RATIO 3.49 (<5); CREATININE FOR GFR 0.63 MG/DL (0.55-1.30); GLOMERULAR FILTRATION RATE > 90.0 (>39); LDL CHOLESTEROL 69.2 MG/DL (<100); NON-HDL-C 99.2 MG/DL; POTASSIUM SERUM 4.7 MMOL/L (3.5-5.1); SODIUM LEVEL 145 MMOL/L (136-145); TRIGLYCERIDES LEVEL 150 MG/DL (<150)
== END ==
LOC: M SFHCCLAY 08:55
PROVIDERS: ATTEND Nurse Practitioner Family
DX: I10 Essential (primary) hypertension (principal); E11.9 Type 2 diabetes mellitus without complications; E55.9 Vitamin D deficiency, unspecified

== ENCOUNTER → 2025-04-29 | Outpatient (REF) | payer MEDICARE | LOC: M SFHCCLAY 17:11 | PROVIDERS: ATTEND Physician Assistant | DX: R30.0 Dysuria (principal) ==